=== PATIENT | male | born 1995 | race Caucasian/White ===

== ENCOUNTER 2019-02-14 20:58 | Emergency (ER) | payer BC ==
[2019-02-14] MEDS ORDERED: Morphine 4 MG/ML VIAL (1 ml) 4 MG/ML VIAL IV ONE (22:25)
[2019-02-14] MEDS ORDERED: Ondansetron INJ* 2 MG/ML VIAL IV ONE (22:25)
--- NOTE | 2019-02-15 00:14 | ED ---
Head Injury - HPI Summary HPI Summary: Patient complains of headache, N/V, amnesia and possible LOC after being hit in the back of the head during football game today. Patient was not wearing helmet at the time. Denies vision change, AMS, focal deficits. Medical history none. - History Of Current Complaint Chief Complaint: EDHeadInjury Stated Complaint: HEAD INJURY PER DAD Time Seen by Provider: 02/14/19 22:11 Hx Obtained From: Patient Mechanism Of Injury: Blunt Trauma Onset/Duration: Started Hours Ago Onset of Pain: Immediate Severity Currently: Severe Severity Initially: Severe Pain Intensity: 10 Pain Scale Used: 0-10 Numeric Location of Head Injury: Diffuse Character: Throbbing Associated Signs And Symptoms: LOC Duration Unknown, Nausea, Vomiting, Headache - Allergies/Home Medications Allergies/Adverse Reactions: Allergies Allergy/AdvReac Type Severity Reaction Status Date / Time No Known Allergies Allergy Verified 02/14/19 21:03 PMH/Surg Hx/FS Hx/Imm Hx Endocrine/Hematology History: Denies: Hx Anticoagulant Therapy Cardiovascular History: Denies: Hx Pacemaker/ICD History: Denies: Hx Dialysis Sensory History: Denies: Hx Eye Prosthesis Opthamlomology History: Denies: Hx Legally Blind EENT History: Denies: Hx Deafness Neurological History: Denies: Hx Developmental Delay Psychiatric History: Denies: Hx Autism Infectious Disease History: No Infectious Disease History: Denies: Traveled Outside the [place] in Last 30 Days - Family History Known Family History: Positive: Non-Contributory - Social History Alcohol Use: None Substance Use Type: Reports: None Smoking Status (MU): Never Smoked Tobacco Review of Systems Constitutional: Negative Eyes: Negative ENT: Negative Cardiovascular: Negative Respiratory: Negative Positive: Vomiting, Nausea Genitourinary: Negative Musculoskeletal: Negative Skin: Negative Positive: Headache Psychological: Normal All Other Systems Reviewed And Are Negative: Yes Physical Exam - Summary Physical Exam Summary: No trauma noted to face, mouth, head. No indication of wound or trauma noted. Full range of motion of neck and jaw. Neuro exam normal. Patient moving all 4 extremities freely. No pain with palpation of abdomen, chest wall, back, neck. Triage Information Reviewed: Yes Vital Signs On Initial Exam: Initial Vitals Temp Pulse Resp BP Pulse Ox 100 F 110 16 141/88 97 02/14/19 21:00 02/14/19 21:00 02/14/19 21:00 02/14/19 21:00 02/14/19 21:00 Vital Signs Reviewed: Yes Appearance: Positive: Well-Appearing Skin: Positive: Warm Head/Face: Positive: Normal Head/Face Inspection Eyes: Positive: Normal ENT: Positive: Normal ENT inspection Dental: Negative: Dental Fracture @, Bleeding Neck: Positive: Supple Respiratory/Lung Sounds: Positive: Clear to Auscultation Cardiovascular: Positive: Normal Abdomen Description: Positive: Nontender Musculoskeletal: Positive: Normal Neurological: Positive: Normal Psychiatric: Positive: Normal AVPU Assessment: Alert - [place] Coma Scale Best Eye Response: 4 - Spontaneous Best Motor Response: 6 - Obeys Commands Best Verbal Response: 5 - Oriented Coma Scale Total: 15 Diagnostics - Vital Signs Vital Signs Temp Pulse Resp BP Pulse Ox 02/14/19 23:44 80 20 104/69 97 02/14/19 23:14 76 19 113/64 97 02/14/19 23:00 85 23 96 02/14/19 22:53 24 02/14/19 22:44 16 139/78 02/14/19 22:14 95 27 143/82 97 02/14/19 22:13 95 97 02/14/19 21:00 100 F 110 16 141/88 97 - Laboratory Lab Statement: Any lab studies that have been ordered have been reviewed, and results considered in the medical decision making process. Head Injury Course/Dx Course Of Treatment: Patient complains of headache, N/V, amnesia and possible LOC after being hit in the back of the head during football game today. Patient was not wearing helmet at the time. Denies vision change, AMS, focal deficits. Medical history none. Physical exam:No trauma noted to face, mouth, head. No indication of wound or trauma noted. Full range of motion of neck and jaw. Neuro exam normal. Patient moving all 4 extremities freely. No pain with palpation of abdomen, chest wall, back, neck. Vital signs within normal limits. CT brain and C-spine negative. - Diagnoses Provider Diagnoses: Concussion Discharge - Sign-Out/Discharge Documenting (check all that apply): Patient Departure Patient Received Moderate/Deep Sedation with Procedure: No - Discharge Plan Condition: Stable Disposition: HOME Patient Education Materials: Concussion (ED), Post Concussion Syndrome (ED), Sports Concussion (ED) Forms: *Work Release Referrals: No Primary Care Phys,NOPCP [Primary Care Provider] - Additional Instructions: No contact sports or activities involving risk of repeat head injury for at least 2 weeks and until cleared by her primary care Doctor Johanna Brothers. Return to the ED for any new or worsening symptoms. - Billing Disposition and Condition Condition: STABLE Disposition: Home
[2019-02-15] MEDS ORDERED: oxyCODONE TAB* 5 MG TAB PO ONE (00:17)
[2019-02-15] MEDS ORDERED: Ondansetron ODT TAB* 4 MG PO ONE (00:17)
[2019-02-15 00:47] VITALS: BP 131/75
== END 2019-02-15 00:46 | disposition home or self-care (01) ==
LOC: ED 20:58
DX: S06.0X9A Concussion with loss of consciousness of unspecified duration, initial encounter (principal); W50.0XXA Accidental hit or strike by another person, initial encounter; Y93.61 Activity, american tackle football
CPT/HCPCS: 70450; 72125; 96374; 96375; 99282; A9270-GY; J2270; J2405